=== PATIENT | male | born 2000 | race Caucasian/White ===

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

== ENCOUNTER 2022-04-20 11:12 | Emergency (ER) | payer OTHER ==
[2022-04-20 11:21] VITALS: BP 127/70; PULSE 82; TEMP 98.8; BMI 22.5
[2022-04-20] MEDS ORDERED: DOXYCYCLINE HYCLATE 100 MG CAPSULE PO ONE ×2 (11:58→12:33)
[2022-04-20 13:01] LABS: HEMATOCRIT 39.8 % (35.4-49); HEMOGLOBIN 13.9 G/dL (11.7-16.9); MCH 29.4 pg (25.7-33.7); MCHC 34.8 g/dl (32.0-35.9); MEAN CELL VOLUME 84.5 fl (80-96); MEAN PLT VOLUME 7.9 fl (7.5-11.1); PLATELET COUNT 238.7 10^3/uL (134-434); RBC 4.71 10^6/uL (4.00-5.60)
[2022-04-20 13:02] LABS: ALBUMIN 4.1 g/dl (3.4-5.0); BILIRUBIN,TOTAL 0.7 mg/dl (0.2-1); CALCIUM 9.4 mg/dl (8.5-10); CREATININE 0.7 mg/dl (0.55-1.3); TOT PROT 7.1 g/dl (6.4-8.2)
== END 2022-04-20 13:40 | disposition home or self-care (01) ==
LOC: FER 11:12
DX: R22.32 Localized swelling, mass and lump, left upper limb (principal)
CPT/HCPCS: 36415; 80053; 81003; 85025; 86618; 87070; 87086; 87491; 87591; 87651; 99284-25